=== PATIENT | female | born 1955 | race Caucasian/White ===

== ENCOUNTER → 2017-08-11 | Outpatient (CLI) | payer OTHER | LOC: BMCIMAGING 08:51 | PROVIDERS: ATTEND Orthopaedic Surgery | DX: M17.11 Unilateral primary osteoarthritis, right knee (principal) ==

== ENCOUNTER → 2017-09-23 | Outpatient (CLI) | payer OTHER | LOC: FIMAGING 10:42 | PROVIDERS: ATTEND Orthopaedic Surgery | DX: Z01.818 Encounter for other preprocedural examination (principal); M17.11 Unilateral primary osteoarthritis, right knee ==

== ENCOUNTER 2017-10-04 06:15 | Inpatient (IN) | payer OTHER ==
[~2017-10-04 06:15] MED LIST: NS IV ONE; ROPIVACAINE 0.2% 80 MG, EPINEPHrine 0.2 MG, morphINE 10 MG in BAG 0 ML IU ONE; TRANEXAMIC ACID IV ONE
--- NOTE | 2017-10-04 06:39 | PDHPUP ---
History & Physical Update H&P update statement: This history and physical update is based on an assessment of the patient which was completed after admission or registration (within 24 hours), but prior to the surgery/procedure.
--- NOTE | 2017-10-04 06:41 | PDIAF ---
- Diagnosis Diagnosis: right knee djd Code Status: Full Code - Medication Management Discharge Medications: Medications to Continue on Transfer traZODone [traZODONE 50MG (RX)] 50 mg PO HS 10/22/12 [Last Taken Unknown] Bimatoprost 0.01% [Lumigan 0.01% (*)] 1 drops EACHEYE HS 08/24/17 [Last Taken Unknown] Lacosamide [Vimpat 50 mg (*)] 50 mg PO BID 08/24/17 [Last Taken Unknown] Multivitamins [Multivitamin (*)] 1 each PO DAILY 08/24/17 [Last Taken Unknown] Sertraline HCl [Zoloft 100mg (*)] 100 mg PO DAILY 08/24/17 [Last Taken Unknown] Lamictal 25 mg PO HS 09/30/17 [Last Taken Unknown] Discharge Medications: Refer to the Discharge Home Medication list for PRN reason. - Orders Services needed: Home Care, Physical Therapy Home Care Face to Face: I certify that this patient was under my care and that I had the required [id number] encounter meeting the encounter requirements on the discharge day. My findings support the fact that the patient is homebound as defined in Home Care Face to Face Continued: CMS Chapter 7 Medicare Benefits Manual 30.1.1 , The condition of the patient is such that there exists a normal inability to leave home and consequently, leaving home would require a considerable and taxing effort. Activity/Weight Bearing Restrictions: wbat. rom as tolerated. daily dressing changes. may shower without bandage. no immersion. benjamin hose x 2 weeks. seek attn for increasing redness, swelling, drainage, discharge. f/u at two weeks [facility] - Follow Up Care Current Providers and Referrals: Haydee Knott MD [Primary Care Provider] -
[2017-10-04] MEDS ORDERED: ACETAMINOPHEN 325 MG TAB PO ONE (07:02)
[2017-10-04] MEDS ORDERED: FAMOTIDINE 20 MG TAB PO ONE (07:02)
[2017-10-04] MEDS ORDERED: ceFAZolin 2 GM/SWFI 2 GM/20 ML SYR IVP ONE (07:02)
[2017-10-04] MEDS ORDERED: LR 1,000 ML IV ONE (07:03)
[2017-10-04] MEDS ORDERED: ceFAZolin 1 GM/5 ML SYR ONE (07:16)
[2017-10-04] MEDS ORDERED: THROMBIN (BOVINE) 5,000 UNIT VIAL TP ONE (07:16)
[2017-10-04] MEDS ORDERED: CALCIUM CHLORIDE 1 GM/10 ML INJ ONE (07:16)
[2017-10-04] MEDS ORDERED: ceFAZolin 2 GM/SWFI 20 ML SYR IVP ONE (07:22)
[2017-10-04] MEDS ORDERED: MIDAZOLAM 2 MG/2 ML VIAL IVP ONE (08:35)
--- NOTE | 2017-10-04 08:37 | PDANEPAE ---
ANE History of Present Illness 62 yo female for L TKA. ANE Past Medical History - Cardiovascular History Hx Hypertension: No Hx Arrhythmias: No Hx Chest Pain: No Hx Coronary Artery / Peripheral Vascular Disease: No Hx CHF / Valvular Disease: No Hx Palpitations: No - Pulmonary History Hx COPD: No Hx Asthma/Reactive Airway Disease: No Hx Recent Upper Respiratory Infection: No Hx Oxygen in Use at Home: No Hx Sleep Apnea: No Sleep Apnea Screening Result - Last Documented: Negative - Neurologic History Hx Cerebrovascular Accident: No Hx Seizures: Yes Hx Dementia: No Neurologic History Comment: POST CRANI 04/2017 - Endocrine History Hx Diabetes: No Hypothyroid: No Hyperthyroid: No Obesity: no - Renal History Hx Renal Disorders: No - Liver History Hx Hepatic Disorders: No - Neurological & Psychiatric Hx Hx Neurological and Psychiatric Disorders: Yes Neurological / Psychiatric History Comment: DEPRESSION - Cancer History Hx Cancer: No - Congenital Disorder History Hx Congenital Disorders: No - GI History GERD: no Hx Gastrointestinal Disorders: No - Other Health History Other Health History: GLAUCOMA - Chronic Pain History Chronic Pain: Yes (RT KNEE) - Surgical History Prior Surgeries: 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 TAB. SEPTOPLASTY ANE Review of Systems Review of Systems: - Exercise capacity METS (RN): 4 METS ANE Patient History - Allergies Allergies/Adverse Reactions: NSAIDS (Non-Steroidal Anti-Inflamma Allergy (Verified 10/22/12 18:38) shellfish derived [shrimp] Allergy (Verified 08/31/17 11:48) - Home Medications Home medications: home medication list seen and reviewed Home Medications: traZODone [traZODONE 50MG (RX)] 50 mg PO HS 10/22/12 [Last Taken 10/03/17 23:00] Bimatoprost 0.01% [Lumigan 0.01% (*)] 1 drops EACHEYE HS 08/24/17 [Last Taken 23:00] Lacosamide [Vimpat 50 mg (*)] 50 mg PO BID 08/24/17 [Last Taken 10/04/17 05:15] Multivitamins [Multivitamin (*)] 1 each PO DAILY 08/24/17 [Last Taken Unknown] Sertraline HCl [Zoloft 100mg (*)] 100 mg PO DAILY 08/24/17 [Last Taken 10/04/17 05:15] Lamictal 25 mg PO HS 09/30/17 [Last Taken 10/03/17 23:00] - NPO status NPO Status: no food or drink >8 hours NPO Since - Liquids (Date): 10/03/17 NPO Since - Liquids (Time): 19:00 NPO Since - Solids (Date): 10/03/17 NPO Since - Solids (Time): 19:00 - Anes Hx Anes Hx: no prior problems - Smoking Hx Smoking Status: Never smoked Marijuana use: No - Alcohol Use Alcohol Use: None - Family Anes Hx Family Anes Hx: neg - N/A ANE Labs/Vital Signs - Vital Signs Blood Pressure: 113/60 Heart Rate: 57 Respiratory Rate: 17 O2 Sat (%): 95 Height: 154.94 cm Weight: 55.338 kg ANE Physical Exam - Airway Neck exam: FROM Mallampati Score: Class 2 Mouth exam: normal dental/mouth exam - Pulmonary Pulmonary: clear to auscultation - Cardiovascular Cardiovascular: regular rate and rhythym - ASA Status ASA Status: II ANE Anesthesia Plan Anesthesia Plan: spinal Regional Anesthesia: adductor canal FNB Urgent/Emergent Case: Deirdregricelda ortegajennifer completed preop but documented later for safe timely pt care
[2017-10-04] MEDS ORDERED: fentaNYL 100 MCG/2 ML INJ ONE (08:41)
[2017-10-04] MEDS ORDERED: PROPOFOL/EMULSION 500 MG/50 ML BOTTLE IV ONE (08:41)
[2017-10-04] MEDS ORDERED: MIDAZOLAM 2 MG/2 ML VIAL ONE (08:41)
[2017-10-04] MEDS ORDERED: TRANEXAMIC ACID 3,000 MG/50 ML BAG IRR ONE (08:44)
[2017-10-04] MEDS ORDERED: DEXAMETHASONE 4 MG/ML VIAL ONE (09:05)
[2017-10-04] MEDS: TRANEXAMIC ACID 3,000 MG in NS 50 ML IRR ONE ×2 (09:08→09:49)
[2017-10-04] MEDS ORDERED: NS IV ONE (09:30)
[2017-10-04] MEDS ORDERED: TRANEXAMIC ACID IV ONE (09:30)
[2017-10-04] MEDS ORDERED: epHEDrine SULFATE 10 MG/ML SYR ONE (09:36)
[2017-10-04] MEDS ORDERED: NALOXONE HCL 0.4 MG/ML INJ IVP PRN (10:10)
[2017-10-04] MEDS ORDERED: fentaNYL 100 MCG/2 ML INJ IVP PRN (10:10)
[2017-10-04] MEDS ORDERED: PROMETHAZINE HCL 25 MG/ML INJ IVP PRN ×2 (10:10→10:26)
[2017-10-04] MEDS ORDERED: ACETAMINOPHEN 500 MG TAB PO PRN (10:10)
[2017-10-04] MEDS ORDERED: ONDANSETRON 4 MG/2 ML VIAL IVP PRN ×2 (10:10→10:26)
[2017-10-04] MEDS ORDERED: ALBUTEROL 3 ML DEYVIAL IH PRN (10:10)
[2017-10-04] MEDS ORDERED: HYDROCODONE/APAP 5/325 TAB PO PRN (10:10)
[2017-10-04] MEDS ORDERED: BUPIVACAINE 0.5% 30 ML SDV ONE (10:14)
[2017-10-04] MEDS ORDERED: diphenhydrAMINE 25 MG CAP PO PRN (10:26)
[2017-10-04] MEDS ORDERED: MAGNESIUM HYDROXIDE 30 ML UDCUP PO PRN (10:26)
[2017-10-04] MEDS ORDERED: CYCLOBENZAPRINE 10 MG TAB PO PRN (10:26)
[2017-10-04] MEDS ORDERED: BISACODYL 10 MG SUPP PR PRN (10:26)
[2017-10-04] MEDS ORDERED: METOCLOPRAMIDE 10 MG/2 ML VIAL IVP PRN (10:26)
[2017-10-04] MEDS ORDERED: TEMAZEPAM 15 MG CAP PO PRN (10:26)
[2017-10-04] MEDS ORDERED: DIPHENOXYLATE/ATROPINE LOMOTIL 1 TAB PO PRN (10:26)
[2017-10-04] MEDS ORDERED: PROMETHAZINE HCL 25 MG SUPPR PR PRN (10:26)
[2017-10-04] MEDS ORDERED: ONDANSETRON DISINTEGRATING 4 MG TAB PO PRN (10:26)
[2017-10-04] MEDS ORDERED: LACTULOSE 20 GM/30 ML UDCUP PO PRN (10:26)
[2017-10-04] MEDS ORDERED: DIAZEPAM 5 MG TAB PO PRN (10:26)
[2017-10-04] MEDS ORDERED: POLYETHYLENE GLYCOL 3350 17 GM PKT PO PRN (10:26)
[2017-10-04] MEDS ORDERED: LR 1,000 ML IV SCH (10:30)
--- NOTE | 2017-10-04 11:05 | POSTANESTH ---
Post Anesthetic Evaluation Cardiovascular Status: Normal, Stable Respiratory Status: Normal, Stable Level of Consciousness/Mental Status: Can Participate in Eval, Mildly Sleepy, Arousable Pain Control: Adequate, Prn Tx Ordered Nausea/Vomiting Control: Adequate, Prn Tx Ordered Complications Possibly Related to Anesthesia: None Noted (Adductor canal block placed in PACU. See anesthesia record for details. Pt comfortable in PACU.)
[2017-10-04] MEDS: ACETAMINOPHEN 325 MG TAB PO SCH ×2 (12:20→18:01)
[2017-10-04] MEDS: oxyCODONE IR 5 MG TAB PO PRN ×2 (14:23→18:04)
[2017-10-04] MEDS: ceFAZolin 2 GM/DEXTROSE 100 ML IV SCH ×2 (14:23→20:32)
[2017-10-04] MEDS: TRANEXAMIC ACID 650 MG TAB PO SCH (18:02)
[2017-10-04] MEDS: LACOSAMIDE 50 MG TAB PO SCH (20:33)
[2017-10-04] MEDS: SENNOSIDES/DOCUSATE SODIUM TAB PO SCH (20:34)
[2017-10-04] MEDS: FAMOTIDINE 20 MG TAB PO SCH (20:34)
[2017-10-04] MEDS ORDERED: lamoTRIgine 25 MG TAB PO SCH (21:00)
[2017-10-04] MEDS ORDERED: LAMICTAL 25 MG PO SCH (21:00)
[2017-10-04] MEDS ORDERED: traZODone 50 MG TAB PO SCH (21:00)
[2017-10-04] MEDS ORDERED: BIMATOPROST 0.01% 2.5 ML OPHT.BTL EACHEYE SCH (21:00)
[2017-10-05] MEDS: ACETAMINOPHEN 325 MG TAB PO SCH ×3 (00:32→13:27)
[2017-10-05] MEDS: TRANEXAMIC ACID 650 MG TAB PO SCH ×2 (00:32→08:15)
[2017-10-05] MEDS: oxyCODONE IR 5 MG TAB PO PRN ×6 (00:33→16:32)
[2017-10-05 04:47] LABS: HEMATOCRIT 34.7 % (38.0-47.0); HEMOGLOBIN 11.7 g/dL (12.6-16.3)
--- NOTE | 2017-10-05 07:23 | PDIAF ---
- Diagnosis Diagnosis: right knee djd Code Status: Full Code - Medication Management Discharge Medications: Medications to Continue on Transfer traZODone [traZODONE 50MG (*)] 50 mg PO HS 10/22/12 [Last Taken 10/03/17 23:00] Bimatoprost 0.01% [Lumigan 0.01% (*)] 1 drops EACHEYE HS 08/24/17 [Last Taken 23:00] Lacosamide [Vimpat 50 mg (*)] 50 mg PO BID 08/24/17 [Last Taken 10/04/17 05:15] Multivitamins [Multivitamin (*)] 1 each PO DAILY 08/24/17 [Last Taken Unknown] Sertraline HCl [Zoloft 100mg (*)] 100 mg PO DAILY 08/24/17 [Last Taken 10/04/17 05:15] lamoTRIgine [LaMICtal] 50 mg PO HS 09/30/17 [Last Taken 10/03/17 23:00] Enoxaparin [Lovenox] 30 mg SC BID #14 syr 10/05/17 [Last Taken Unknown] oxyCODONE IR [Oxycodone Ir (*)] 5 - 10 mg PO Q3HRS PRN #90 tab 10/05/17 [Last Taken Unknown] Discharge Medications: Refer to the Discharge Home Medication list for PRN reason. - Orders Services needed: Home Care, Physical Therapy Home Care Face to Face: I certify that this patient was under my care and that I had the required [id number] encounter meeting the encounter requirements on the discharge day. My findings support the fact that the patient is homebound as defined in Home Care Face to Face Continued: [facility] Chapter 7 Medicare Benefits Manual 30.1.1 , The condition of the patient is such that there exists a normal inability to leave home and consequently, leaving home would require a considerable and taxing effort. Diet Recommendation: no restrictions on diet Diet Texture: Regular Texture Diet Activity/Weight Bearing Restrictions: wbat. rom as tolerated. daily dressing changes. may shower without bandage. no immersion. benjamin hose x 2 weeks. seek attn for increasing redness, swelling, drainage, discharge. f/u at two weeks [facility] - Follow Up Care Current Providers and Referrals: Haydee Knott MD [Primary Care Provider] -
--- NOTE | 2017-10-05 07:50 | GDS ---
[f rep st] DISCHARGE SUMMARY ADMISSION DIAGNOSIS: Right knee degenerative joint disease. DISCHARGE DIAGNOSIS: Right knee degenerative joint disease. PROCEDURE: Right total knee arthroplasty, MAKOplasty. HISTORY OF PRESENT ILLNESS: The patient is a 62-year-old woman with end-stage arthritis to her right knee. Clinical and radiographic features are consistent with this. She has failed all attempts at conservative management. I have therefore recommended operative intervention. She understood the ri sks, benefits, and alternatives. HOSPITAL COURSE: The patient was admitted to the hospital floor after uncomplicated total knee arthr oplasty. She tolerated the procedure well. Overnight, she had no complications. At the time of dis charge, she is tolerating an oral diet. Her pain is well controlled on oral medicines. She is voidi ng without difficulty. Her dressing is clean, dry, and intact. There is negative Rama's bilaterall y. X-rays demonstrate stable anatomic alignment. No fracture or lucency. DISCHARGE MEDICATIONS: Oxycodone 5 mg 1-2 every 4 hours p.r.n. pain, enoxaparin 30 mg subcu twice da victor manuel for a total of 2 weeks. DISCHARGE ACTIVITY: She is weightbearing as tolerated. Range of motion as tolerated. Daily dressin g changes. No soaking or immersion. FOLLOW UP: At 2 weeks. /[id number]/MODL
[2017-10-05] MEDS: SENNOSIDES/DOCUSATE SODIUM TAB PO SCH (08:15)
[2017-10-05] MEDS: LACOSAMIDE 50 MG TAB PO SCH (08:15)
[2017-10-05] MEDS: FAMOTIDINE 20 MG TAB PO SCH (08:15)
[2017-10-05] MEDS ORDERED: SERTRALINE HCL 100 MG TAB PO SCH (09:00)
[2017-10-05] MEDS ORDERED: ENOXAPARIN 30 MG/0.3 ML SYR SC SCH (09:00)
[2017-10-05 11:48] VITALS: RESP 16
--- NOTE | 2017-10-05 15:08 | ASMTCMCOM ---
CM Note CM Note Notes: PT rec outpatient, pt wants HHC and completed order for HHC PT. Pt medically stable for d/c w [facility], orders sent in [employer]. Address/phone verified. Anastacia Lau [phone] is resource for d/c needs. Date Signed: 10/05/2017 03:08 PM Electronically Signed By:KARSON Mitchell
[2017-10-05 15:57] VITALS: BP 127/40; PULSE 57; TEMP 98.1; O2SAT 97
--- NOTE | 2017-10-06 09:03 | ASDISCHSUM ---
Discharge Information Plan Status:Home with Home Health Medically Cleared to Leave: Discharge Date:10/05/2017 06:12 PM CM D/C Disposition:Home Health Service ADT D/C Disposition:Home Health Service Projected Discharge Date:10/05/2017 11:00 AM Transportation at D/C: Discharge Delay Reason: Follow-Up Date:10/05/2017 11:00 AM Discharge Slot: Final Diagnosis: Placement Information Referral Type:*Home Health Care Services Referral ID:[id number] Provider Name:[facility] Address 1:[address] Phone Number: Address 2: Fax Number: City:[place] Selection Factors: State:[place] Patient Contact Information Contact Name:CHRIS Relationship:Life Partner Address:[address] Work Phone: City:[place] Alternate Phone: State/[facility] Code:[place] [address] Email: Financial Information Financial Class:HMO and PPO Plans Primary Plan Desc:[facility] PPO POS Primary Plan Number:[id number] Secondary Plan Desc: Secondary Plan Number: Assessment Information [facility] CM Progress Note CM Note CM Note Notes: PT rec outpatient, pt wants C and completed order for HHC PT. Pt medically stable for d/c w [facility] Address/phone verified. Anastacia Lau [phone] is resource for d/c needs. Date Signed: 10/05/2017 03:08 PM Electronically Signed By:KARSON Mitchell Intervention Information
--- NOTE | 2017-10-06 10:05 | GOP ---
[f rep st] OPERATIVE REPORT DATE OF OPERATION: 10/04/2017 SURGEON: Chandrakant Torre MD AD OPERATIONS SPECIALIST: Austin Trivedi, HOUSE DESIGNER, [facility], who was a medical necessity for the entirety of the case pr eoperative. PREOPERATIVE DIAGNOSIS: Right knee degenerative joint disease. POSTOPERATIVE DIAGNOSIS: Right knee degenerative joint disease. PROCEDURE PERFORMED: Right total knee arthroplasty, MAKOplasty. FINDINGS: SPECIMENS: None. INDICATIONS: The patient is a 62-year-old woman with end-stage arthritis to the right knee. Clinica l and radiographic features are consistent with this. She has failed all attempts at conservative ma nagement. I have recommended operative intervention with total knee replacement. She understood the risks, benefits and alternatives, and wished to proceed. Written consent was signed and [facility] DESCRIPTION OF PROCEDURE: Patient was identified in the preanesthesia area. The right knee clearly demarcated as the operative site with indelible marker. She was given 2 g of Ancef intravenously en route to the operative suite. In the OR, a spinal anesthetic was placed followed by sedation. She w as positioned in the supine position. All bony prominences were well padded. The right lower extrem ity was then sterilely prepped and draped in the usual fashion. A tourniquet had been applied to the upper thigh. Appropriate time-out procedure was carried out. The limb was exsanguinated with an Es march bandage. Tourniquet inflated to 275 mmHg. A standard anterior midline incision was made. Thi ck subcutaneous flaps were elevated followed by medial parapatellar arthrotomy. There were gross tri compartmental changes. A decision was made to proceed with total knee replacement. An additional pe rcutaneous incision was made over the mid femur and mid colon and 2 pins were placed into each area in a bicortical fashion. The femoral and tibial reference arrays were then affixed. The check points for the femur and tibia were affixed. The bony landmarks were entered into the computer. The knee w as taken through flexion and extension and balanced with the soft tissue and robot assistance. Using the robot guidance, resections were made for a size 2 femur and a size 1 tibia. The box was then cu t with a size 2 box cutting guide for the femur. All bony fragments were withdrawn. The femur fit a ppropriately. The tibia was then placed over an 11 mm polyethylene spacer and brought to full extens ion. The tray was pinned in the correct orientation and the central fin cut. The patella was then e verted and cut in a freehand cutting technique and drill holes made for a 29 mm asymmetrical poly pat cortez. With a 13 mm spacer the knee was able to come to full extension and flexion without instabilit y through the flexion-extension arc. All of the trial components were withdrawn. The surfaces were thoroughly cleansed and dried with a pulsatile lavage in a sequential fashion. The tibial, femoral a nd patellar components were cemented over the final 1 x 13 mm thick polyethylene spacer. This was co nfirmed to be fully seated. The margins were instilled with a joint cocktail without Toradol given t he patient's allergy to anti-inflammatories. The wound was copiously irrigated. The medial parapate llar arthrotomy closed using #1 Ethibond suture. The deep tissues sprayed with a platelet-rich plasm a solution. The subcutaneous tissue closed using a 0 Quill equivalent and the skin was stapled. The margins were instilled with the joint cocktail as above. Sterile dressing was applied. The patient was awakened, extubated and taken to recovery in good, stable condition. ATTENDING PHYSICIAN: Chandrakant Torre MD. TOTAL TOURNIQUET TIME: 62 minutes. COMPLICATIONS: None. IMPLANTS: A Enrike Triathlon knee size 2 PS femoral component, size 1 tibial component, size 1 x 13 X3 tibial bearing insert, and an asymmetrical 29 mm polyethylene spacer 9 mm thick. DISPOSITION: To the recovery room then the floor. She is weightbearing, range of motion as tolerate d. Follow standard total knee recovery. /[id number]/MODL
== END 2017-10-05 18:12 | disposition home health service (06) | DRG 470 ==
LOC: F3N 06:15
PROVIDERS: ADMIT Orthopaedic Surgery; ATTEND Orthopaedic Surgery
PROC: 0SRC0J9 Replacement of Right Knee Joint with Synthetic Substitute, Cemented, Open Approach (ICD-10-PCS; principal; 2017-10-04 09:00)
PROC: 8E0Y0CZ Robotic Assisted Procedure of Lower Extremity, Open Approach (ICD-10-PCS; principal; 2017-10-04 09:00)
PROC: 6A550Z2 Pheresis of Platelets, Single (ICD-10-PCS; principal; 2017-10-04 09:00)
PROC: 3E0U3GC Introduction of Other Therapeutic Substance into Joints, Percutaneous Approach (ICD-10-PCS; principal; 2017-10-04 09:00)
DX: M17.11 Unilateral primary osteoarthritis, right knee (principal); F32.9 Major depressive disorder, single episode, unspecified; H40.9 Unspecified glaucoma
CPT/HCPCS: 97110-GP; 97116-GP; 97161-GP; 97165-GO; 97530-GP; C1713; J0171; J0690; J1100; J1650; J2250; J2704; J2795; J3010

== ENCOUNTER → 2017-11-22 | Outpatient (CLI) | payer OTHER | LOC: BMCIMAGING 11:06 | PROVIDERS: ATTEND Orthopaedic Surgery | DX: Z47.1 Aftercare following joint replacement surgery (principal); M25.461 Effusion, right knee; Z96.653 Presence of artificial knee joint, bilateral ==

== ENCOUNTER → 2018-01-20 | Outpatient (CLI) | payer OTHER | LOC: BMCIMAGING 08:47 | PROVIDERS: ATTEND Orthopaedic Surgery | DX: Z47.1 Aftercare following joint replacement surgery (principal); Z96.651 Presence of right artificial knee joint ==

== ENCOUNTER → 2018-02-15 | Outpatient (CLI) | payer OTHER | LOC: FIMAGING 08:57 | PROVIDERS: ATTEND Obstetrics & Gynecology | DX: Z12.31 Encounter for screening mammogram for malignant neoplasm of breast (principal) ==

== ENCOUNTER → 2018-04-25 | Outpatient (CLI) | payer OTHER | LOC: BMCIMAGING 08:57 | PROVIDERS: ATTEND Orthopaedic Surgery | DX: Z47.1 Aftercare following joint replacement surgery (principal); Z96.651 Presence of right artificial knee joint ==